=== PATIENT | male | born 1965 | race Caucasian/White ===

== ENCOUNTER 2018-11-15 06:55 | Emergency (ER) | payer BC ==
[~2018-11-15] VITALS: Ht 177.8 cm; Wt 115.7 kg
[~2018-11-15 06:55] MED LIST: KEFLEX500 MG PO
== END 2018-11-15 07:27 | disposition home or self-care (01) ==
LOC: ED 06:55
DX: B37.0 Candidal stomatitis (principal)

== ENCOUNTER 2020-03-08 12:32 | Inpatient (IN) | payer BC ==
[2020-03-08] VITALS (7 sets, daily range): BP systolic 122–136; BP diastolic 67–84
[~2020-03-08] VITALS: Ht 178 cm; Wt 124.3 kg
[2020-03-08 13:12] LABS: BASO % 0.2 % (0.0-1.0); HEMATOCRIT 47.2 % (42.0-52.0); LYMPH % 12.1 % (27.0-41.0); MEAN CELL VOLUME 93.8 fl (80.0-94.0); MEAN CORPUSCULAR HGB 31.8 pg (27.0-31.0); MEAN CORPUSCULAR HGB CONC 33.9 g/dl (33.0-37.0); MEAN PLATELET VOLUME 10.5 fl (9.6-12.3); MONO # 0.6 10*3/uL (0.1-1.0); MONO % 6.7 % (3.0-9.0); NEUT # 6.6 10*3/uL (2.3-7.9); NEUT % 80.3 % (47.0-73.0); PLATELET COUNT AUTOMATED 290 10*3/uL (130-400); RED BLOOD COUNT 5.03 10*6/uL (4.50-5.90); RED CELL DISTRI WIDTH 12.9 % (0-14.5); WHITE BLOOD COUNT 8.2 10*3/uL (4.8-10.8)
--- NOTE | 2020-03-08 13:18 | NUR ---
cardizem titrated up to 6mcg
[2020-03-08 13:23] LABS: ACT PARTIAL THROMBO TIME 46.3 SECONDS (20.0-32.1); INTERNATIONAL NORM RATIO 1.1 (2.0-3.5)
[2020-03-08 13:29] LABS: ALBUMIN 2.7 gm/dl (3.1-4.5); ALKALINE PHOSPHATASE 51 U/L (45-117); BUN 18 mg/dl (7-24); CHLORIDE 101 mmol/L (98-107); CREATININE 1.24 mg/dL (0.70-1.30); POTASSIUM 3.2 mmol/L (3.5-5.1); SGOT/AST 27 IU/L (3-35); SGPT/ALT 22 U/L (12-78); SODIUM 136 mmol/L (136-145); TOTAL PROTEIN 7.5 gm/dL (6.4-8.2)
[2020-03-08 13:31] LABS: TROPONIN I < 0.015 ng/ml (<0.045)
[2020-03-08 13:35] LABS: THYROXINE (T4) TOTAL 8.4 ug/dl (4.5-12.1)
[2020-03-08 13:40] LABS: THYROID STIM HORMONE (HS) 1.2 uIU/ml (0.358-4.75)
--- NOTE | 2020-03-08 13:52 | NUR ---
PT IS RESTING IN BED.
--- NOTE | 2020-03-08 14:04 | NUR ---
TITRATED PT TO 10MG/HR. HR 139, B/P 136/79. PATIENT RESTING IN BED WITH NO VOICED COMPLAINTS. WILL CONTINUE TO MONITOR.
--- NOTE | 2020-03-08 15:08 | NUR ---
CARDIZEM TITRATED TO 15MG
[2020-03-08 17:06] LABS: ABG BASE EXCESS 2.8 mmol/L (-2.0-2.0); ARTERIAL BLOOD GAS PH 7.503 (7.35-7.45)
--- NOTE | 2020-03-08 20:00 | NUR ---
Patient resting quietly with no c/o discomfort. Respirations easy and regular. Vital signs stable. No overt distress. YASIR ARAGON
--- NOTE | 2020-03-08 23:00 | NUR ---
CARDIZEM GTT DECREASED TO 5MG AFTER CONVERSION TO NSR.
[2020-03-09] VITALS (10 sets, daily range): BP systolic 120–149; BP diastolic 60–91
--- NOTE | 2020-03-09 | NUR ---
Patient resting quietly with no c/o discomfort. Respirations easy and regular. Vital signs stable. No overt distress. YASIR ARAGON
--- NOTE | 2020-03-09 03:20 | NUR ---
CARDIZEM GTT DECREASED TO 2.5MG HR HAS STAYED CONSISTENTLY NSR IN THE 60s.
--- NOTE | 2020-03-09 05:41 | NUR ---
Patient resting quietly with no c/o discomfort. Respirations easy and regular. Vital signs stable. No overt distress. YASIR ARAGON
--- NOTE | 2020-03-09 06:25 | NUR ---
MESSAGE LEFT FOR DR ROBERSON AT ANSWERING SERVICE FOR ORDER TO D/C RYAN GTT.
[2020-03-09 06:29] LABS: BASO % 0.2 % (0.0-1.0); HEMATOCRIT 46.2 % (42.0-52.0); LYMPH # 0.6 10*3/uL (1.3-4.4); LYMPH % 13.5 % (27.0-41.0); MEAN CELL VOLUME 96.5 fl (80.0-94.0); MEAN CORPUSCULAR HGB 31.5 pg (27.0-31.0); MEAN CORPUSCULAR HGB CONC 32.7 g/dl (33.0-37.0); MEAN PLATELET VOLUME 10.8 fl (9.6-12.3); MONO # 0.2 10*3/uL (0.1-1.0); MONO % 4.3 % (3.0-9.0); NEUT # 3.8 10*3/uL (2.3-7.9); NEUT % 81.1 % (47.0-73.0); PLATELET COUNT AUTOMATED 324 10*3/uL (130-400); RED BLOOD COUNT 4.79 10*6/uL (4.50-5.90); RED CELL DISTRI WIDTH 12.9 % (0-14.5); WHITE BLOOD COUNT 4.7 10*3/uL (4.8-10.8)
[2020-03-09 06:31] LABS: ALBUMIN 2.7 gm/dl (3.1-4.5); ALKALINE PHOSPHATASE 52 U/L (45-117); BUN 18 mg/dl (7-24); CHLORIDE 103 mmol/L (98-107); CREATININE 0.97 mg/dL (0.70-1.30); LDH 247 U/L (87-241); POTASSIUM 4.1 mmol/L (3.5-5.1); SGOT/AST 24 IU/L (3-35); SGPT/ALT 23 U/L (12-78); SODIUM 134 mmol/L (136-145); TOTAL PROTEIN 7.5 gm/dL (6.4-8.2)
[2020-03-09 08:30] LABS: ABG BASE EXCESS 1.4 mmol/L (-2.0-2.0); ARTERIAL BLOOD GAS PH 7.482 (7.35-7.45)
[2020-03-09 10:40] LABS: VITAMIN D, 25-HYDROXY 29.1 ng/mL (30-100)
[2020-03-09 10:41] LABS: FERRITIN 1068.9 ng/mL (22.0-322.0)
[2020-03-09 13:07] LABS: ABG BASE EXCESS 1.2 mmol/L (-2.0-2.0); ARTERIAL BLOOD GAS PH 7.494 (7.35-7.45)
--- NOTE | 2020-03-09 14:20 | NUR ---
PT WAS PLACED ON BIPAP PER DR CHEN. PT TOLERATING WELL. RT EXPLANED TO PT THE IMPORTANCE OF THE BIPAP AND PRONNING FOR COVID. PT UNDERSTANDS.
--- NOTE | 2020-03-09 15:17 | NUR ---
Front Sight Attacher in to talk to patient. Patient states lives at home with friend. There are no steps in the home. Physician: Pharmacy: mail Home health services: none Patient's level of ADLs: INDEPENDENT Patient has working utilities: all working DME: none Follow-up physician's appointment after d/c: will be made by hospitalist nurse director upon discharge Does patient want to access PORTAL?: no Discharge plan discussed with patient by phone, he is independent in adls and ambulation, works, drives, he states she will return home when discharged and denies at this time any home needs, case management will follow. MICHAEL JEFFERSON
--- NOTE | 2020-03-09 15:42 | NUR ---
0800 ISOLATION COVID POSITIVE: ASSUMED PATIENT CARE. RECEIVED ALERT, ORIENTED X3. COHERENT. O2PER N/C INCREASED TO 6L/HR. NO DYSPENA NOTED, DENIES DYSPNEA AT T HIS TIME. LUNGS CLEAR BILATERALLY WITH DIMINISGED BASES. WESTERN FELT HAT BLOCKER IN PLACE NSR NOTED. SKIN W/D. COLOR PINK/PALE. WARM TO TOUCH WITH GOOD SKIN TUGOR. CPAILLARY REFILL <3 SECONDS. DENIES ABDOMINAL DISCONFORT. ABDOMEN ROUND WITH POSITIVE BS X 4. NO SYSTEMIC EDEMA NOTED.LAC HEPLOCK IN PLACE FLUSHED WITH 10CC VS. RA IV'S CARDIZEM DRIP @2.5 CC/HR NO S/S INFLITRATION NOTED. HEPARIN DRIP @ 12CC/HR 1200UNITS PER HOUR. O2SAT =83% 0N 6L N/C 1000 PTT RESULTS 62.5. NO CHANGE TO DRIP RATE. BLOOD GAS DRAWN ORDERED PER RESPIRATORY. PLAN: TO APPLY B-PAP ACCORDING TO ABG RESULTS 1045 CARDIZEM DRIP DISCONTINUED ORDERED. LOPRESSOR 50MG GIVEM PO 1430 BI-PAP STARTED PER RESPIRATORY. PATIENT TEACHING STRESSING THE IMPORTANCE OF BI-PAP AND THE NEED FOR FURTHER MONITORING. VITALS STABLE. DENIES DISCOMFORT. 1600 REPEAT ABG PER RESPIRATORY. DENIES DYSPNEA.
[2020-03-09 16:28] LABS: ABG BASE EXCESS 2.1 mmol/L (-2.0-2.0); ARTERIAL BLOOD GAS PH 7.572 (7.35-7.45)
[2020-03-09 21:44] LABS: ABG BASE EXCESS 1.7 mmol/L (-2.0-2.0); ARTERIAL BLOOD GAS PH 7.559 (7.35-7.45)
--- NOTE | 2020-03-09 23:32 | NUR ---
Patient received in bed AAO denies pain or SOB at this time.Heparin drip infusing at 12ml/hr LAC. Lungs decreased. Patient on Bipap. Instructed to notify RN for increased SOB or difficulty breathing. Vitals stable at this time will continue to monitor.
[2020-03-10] VITALS (9 sets, daily range): BP systolic 126–154; BP diastolic 70–81
--- NOTE | 2020-03-10 00:02 | NUR ---
Administered Remdesivir as ordered LACdedicated line. Patient tolerated well. No complaint offered. No adverse effect noted.
--- NOTE | 2020-03-10 05:09 | NUR ---
Patient SB on and off throught the night. Lowest HR noted 47 Patient asleep. Awake patient at interval. Easily aroused. Denies discomfort. Bipap remains in use. Heparin continues to infuse at 12 ml/hr. Ptt in AM
[2020-03-10 06:10] LABS: ALBUMIN 2.5 gm/dl (3.1-4.5); BUN 21 mg/dl (7-24); CHLORIDE 105 mmol/L (98-107); CREATININE 0.97 mg/dL (0.70-1.30); LDH 318 U/L (87-241); SGOT/AST 28 IU/L (3-35); SGPT/ALT 26 U/L (12-78); SODIUM 136 mmol/L (136-145)
[2020-03-10 06:11] LABS: ALKALINE PHOSPHATASE 48 U/L (45-117); BASO % 0.1 % (0.0-1.0); CPK 120 U/L (39-308); HEMATOCRIT 43.6 % (42.0-52.0); LYMPH # 1.2 10*3/uL (1.3-4.4); MEAN CELL VOLUME 97.1 fl (80.0-94.0); MEAN CORPUSCULAR HGB 31.8 pg (27.0-31.0); MEAN CORPUSCULAR HGB CONC 32.8 g/dl (33.0-37.0); MEAN PLATELET VOLUME 10.9 fl (9.6-12.3); MONO # 0.7 10*3/uL (0.1-1.0); MONO % 4.7 % (3.0-9.0); NEUT # 12.9 10*3/uL (2.3-7.9); POTASSIUM 4.7 mmol/L (3.5-5.1); RED BLOOD COUNT 4.49 10*6/uL (4.50-5.90); RED CELL DISTRI WIDTH 13.1 % (0-14.5)
[2020-03-10 06:12] LABS: PLATELET COUNT AUTOMATED 438 10*3/uL (130-400)
--- NOTE | 2020-03-10 06:35 | NUR ---
Received call from lab spoke to iHlda Moreno Lactic Acid 2.3. DR Clair Mo notified of Critical lab value. States I will follow up also notified him of PTT 63.1. Patient on Heparin drip at 1200 units no change per protocol. Next PTT in am.
--- NOTE | 2020-03-10 08:15 | NUR ---
PATIENT TAKEN OFF OF BI-PAP, PLACED ON 6 L/M.
[2020-03-10 08:17] LABS: ABG BASE EXCESS 2.7 mmol/L (-2.0-2.0); ARTERIAL BLOOD GAS PH 7.561 (7.35-7.45)
--- NOTE | 2020-03-10 08:44 | NUR ---
)730 ASSUMED PATIENT CARE. RECEIVED ALERT, ORIENTED X3. COHERENT. "I FEEL OKAY TODAY, JUST WANNA KNOW WHEN I CAN GO HOME." PATIENT TEACHING GIVEN. INFORMED OF NEED FOR FURTHER TREATMENT. EXPLAINED ANATOMY AND PHYSIOLOGY OF THE LUNGS VIA WAY OF USINGE THE SECTIONS OF A ORANGE AN EXAMPLE. STATES "I UNDERSTAND IT BETTER NOW" STRESSED THE NEED FOR FURTHER TREATMENT. STATES HE DIDN'T SLEEP OR REST WELL LAST NIGHT WITH THE MACHINE (BI-PAP). LOOKS DEPRESSED AND SPEAKING WITH LESS ENTHUSIAM. BI-PAP IN PLACE TOERATING IT WELL. COLOR PINK. SKIN WARM AND DRY TO TOUCH, GOOD SKIN TUGOR. CAPILLARY REFILL <3SECS. LUNG CLEAR BILATERALLY WITH GOOD AERATION SLIGHTLY DIMINSHED TO THE BASES. MOVING ALL EXTREMITIES WITHOUT DIFFICULITIES. RAC IV HEPARIN DRIP @ 12CC/HR INFUSING WELL WITH NO S/S INFILTRATION NOTED. LAC NOTED FLUSHED WITH 10CC/HR NO S/S INFILTRATION NOTED. VOIDING WITHOUT DIFFICULTY. DENIES ABDOMINAL DISCOMFORT WITH POSITIVE BSX4. NO SYSTEMIC EDEMA NOTED. 0800 REPEAT 2 HOUR LACTIC ACID REDRAWN. ABG DONE. PORTABLE XRAY COMPLETED. 0830 LACTIC ACID =2.7 DE. OLIVIA IMFORMED NO ORDERES RECEIVED.
--- NOTE | 2020-03-10 14:14 | NUR ---
1320 cRITICAL RESULTS LACTIC ACID =3.[address] KUMAR INFORMED NO ORDERS GIVEN
--- NOTE | 2020-03-10 17:00 | NUR ---
PATIENT TAKEN OFF OF BI-PAP, PLACED ON 5 L/M CANNULA.
[2020-03-11] VITALS (12 sets, daily range): BP systolic 126–1278; BP diastolic 49–88
--- NOTE | 2020-03-11 03:54 | NUR ---
Assumed care at 1900 No acute distress noted at this time. Denies pain or SOB. Heparin infusing at 1200 units/hr. Administered meds as ordered. Chris hose in place removed and reapplied. SB throughout the night 44-55. Bipap is maintained. Will continue to monitor
[2020-03-11 05:55] LABS: ALBUMIN 2.6 gm/dl (3.1-4.5); ALKALINE PHOSPHATASE 51 U/L (45-117); BUN 23 mg/dl (7-24); CHLORIDE 107 mmol/L (98-107); LDH 208 U/L (87-241); POTASSIUM 3.9 mmol/L (3.5-5.1); SGOT/AST 23 IU/L (3-35); SGPT/ALT 32 U/L (12-78); SODIUM 139 mmol/L (136-145); TOTAL PROTEIN 6.5 gm/dL (6.4-8.2)
[2020-03-11 06:02] LABS: BASO % 0.2 % (0.0-1.0); HEMATOCRIT 42.4 % (42.0-52.0); LYMPH # 1.1 10*3/uL (1.3-4.4); LYMPH % 7.4 % (27.0-41.0); MEAN CELL VOLUME 95.5 fl (80.0-94.0); MEAN CORPUSCULAR HGB 31.8 pg (27.0-31.0); MEAN CORPUSCULAR HGB CONC 33.3 g/dl (33.0-37.0); MEAN PLATELET VOLUME 10.8 fl (9.6-12.3); MONO # 0.8 10*3/uL (0.1-1.0); MONO % 5.3 % (3.0-9.0); NEUT # 12.3 10*3/uL (2.3-7.9); NEUT % 85.4 % (47.0-73.0); PLATELET COUNT AUTOMATED 487 10*3/uL (130-400); RED BLOOD COUNT 4.44 10*6/uL (4.50-5.90); RED CELL DISTRI WIDTH 12.9 % (0-14.5); WHITE BLOOD COUNT 14.4 10*3/uL (4.8-10.8)
[2020-03-11 06:03] LABS: CPK 75 U/L (39-308)
[2020-03-11 08:34] LABS: ABG BASE EXCESS 2.4 mmol/L (-2.0-2.0); ARTERIAL BLOOD GAS PH 7.644 (7.35-7.45)
[2020-03-12] VITALS (7 sets, daily range): BP systolic 102–155; BP diastolic 42–80
--- NOTE | 2020-03-12 04:32 | NUR ---
Patients SB heart rate continues to be low while asleep 37-50s. Patient denies pain ,SOB or discomfort upon assessment during episodes. Pt on Bipap througout the night. Will continue to monitor.
[2020-03-12 06:26] LABS: ALBUMIN 2.6 gm/dl (3.1-4.5); ALKALINE PHOSPHATASE 53 U/L (45-117); BUN 23 mg/dl (7-24); CHLORIDE 107 mmol/L (98-107); CPK 63 U/L (39-308); CREATININE 1.02 mg/dL (0.70-1.30); LDH 219 U/L (87-241); POTASSIUM 4.1 mmol/L (3.5-5.1); SGOT/AST 50 IU/L (3-35); SGPT/ALT 63 U/L (12-78); SODIUM 139 mmol/L (136-145); TOTAL PROTEIN 6.6 gm/dL (6.4-8.2)
[2020-03-12 06:36] LABS: HEMATOCRIT 44.8 % (42.0-52.0); MEAN CELL VOLUME 96.8 fl (80.0-94.0); MEAN CORPUSCULAR HGB 31.5 pg (27.0-31.0); MEAN CORPUSCULAR HGB CONC 32.6 g/dl (33.0-37.0); MEAN PLATELET VOLUME 10.4 fl (9.6-12.3); PLATELET COUNT AUTOMATED 493 10*3/uL (130-400); RED BLOOD COUNT 4.63 10*6/uL (4.50-5.90); WHITE BLOOD COUNT 13.3 10*3/uL (4.8-10.8)
[2020-03-12 07:20] LABS: ATYPICAL LYMPHS 1 % (0-0); BURR CELLS FEW; PLATELET SUFFICIENCY HIGH (NORMAL); TOTAL CELLS COUNTED 100 #CELLS
[2020-03-12 07:48] LABS: ABG BASE EXCESS 2.3 mmol/L (-2.0-2.0); ARTERIAL BLOOD GAS PH 7.676 (7.35-7.45)
--- NOTE | 2020-03-12 08:00 | NUR ---
PT RESTING. VSS. PT STILL C/O SLIGHT SOB ON EXERTION. LUNG DOLAN DIM BILAT. 4L NC ON WITH POX 97%. PT DENIES COMPLAINTS. NO ACUTE DISTRESS NOTED.
--- NOTE | 2020-03-12 09:40 | NUR ---
TOPROL XL HELD FOR HR 50'S.
--- NOTE | 2020-03-12 10:30 | NUR ---
DR UMAÑA IN TO SEE PT. STATED PT COULD BE MED-SURGE AND PT PROBABLY GOING HOME TOMORROW SO HOLD BIPAP TODAY IF ABLE.
--- NOTE | 2020-03-12 13:03 | NUR ---
PT RESTING. NO ACUTE DISTRESS NOTED.
--- NOTE | 2020-03-12 16:34 | NUR ---
DR ROBERSON UPDATED ON PT'S CONTINUED HR IN 50'S AND TOPROL HELD THIS AM. ORDERS RECEIVED TO HOLD TOPROL TODAY 1/2 CURRENT DOSE AND START THAT DOSE (WHICH WOULD BE 12.5MG ) IN AM 03/13.
--- NOTE | 2020-03-12 17:00 | NUR ---
PATIENT ASSESSED FOR HOME O2. AT REST ON 3.5 L/M O2 PATIENT'S SPO2 WAS 100% HR 56. AFTER 10 MINUTES ON ROOM AIR SPO2 DECREASED TO 97%, HR 55. PATIENT AMBULATED IN THE ROOM ON ROOM AIR, SPO2 DECREASED TO 94% HR REMAINED IN THE 50'S. PATIENT DID NOT QUALIFY FOR HOME O2. CARLOS DUBON NOTIFIED. PATIENT LEFT ON ROOM AIR.
--- NOTE | 2020-03-12 18:19 | NUR ---
DR FAROOQ IN TO SEE PT.
--- NOTE | 2020-03-12 20:00 | NUR ---
Patient sitting up in chair, has no complaints at this time. Requested his sleeping pill at 11pm instead of the scheduled time of 10. Patient on room air doing great, and ready to go home tomorrow. Patient left with call light in reach.
--- NOTE | 2020-03-12 23:45 | NUR ---
PATIENT DOES NOT WISH TO WEAR THE BIPAP FOR THIS SHIFT.
[2020-03-13] VITALS: BP 136/67
--- NOTE | 2020-03-13 03:39 | NUR ---
24 HR chart check completed.
[2020-03-13 06:55] LABS: HEMATOCRIT 47.6 % (42.0-52.0); MEAN CELL VOLUME 98.1 fl (80.0-94.0); MEAN CORPUSCULAR HGB CONC 32.6 g/dl (33.0-37.0); MEAN PLATELET VOLUME 10.2 fl (9.6-12.3); NUCLEATED RED BLOOD CELL 0.1 % (0.0-0.0); PLATELET COUNT AUTOMATED 558 10*3/uL (130-400); RED BLOOD COUNT 4.85 10*6/uL (4.50-5.90); RED CELL DISTRI WIDTH 13.2 % (0-14.5); WHITE BLOOD COUNT 13.7 10*3/uL (4.8-10.8)
[2020-03-13 07:27] LABS: ALBUMIN 2.8 gm/dl (3.1-4.5); BUN 20 mg/dl (7-24); CHLORIDE 105 mmol/L (98-107); CREATININE 1.05 mg/dL (0.70-1.30); POTASSIUM 4.1 mmol/L (3.5-5.1); SGOT/AST 40 IU/L (3-35); SGPT/ALT 71 U/L (12-78); SODIUM 139 mmol/L (136-145)
[2020-03-13 07:32] LABS: ALKALINE PHOSPHATASE 55 U/L (45-117); CPK 51 U/L (39-308); LDH 223 U/L (87-241)
[2020-03-13 08:00] VITALS: BP 150/76
[2020-03-13 08:07] LABS: ATYPICAL LYMPHS 3 % (0-0); PLATELET SUFFICIENCY HIGH (NORMAL); TOTAL CELLS COUNTED 100 #CELLS
[2020-03-13 08:20] LABS: ABG BASE EXCESS 1.8 mmol/L (-2.0-2.0); ARTERIAL BLOOD GAS PH 7.487 (7.35-7.45)
--- NOTE | 2020-03-13 08:30 | NUR ---
Patient resting quietly with no c/o discomfort. Respirations easy and regular.Isolation precautions maintained. Vital signs stable. No overt distress. REGINA HESS R
--- NOTE | 2020-03-13 09:00 | NUR ---
case management talks with patient, he is a possibly discharge to home today, he did not qualify for home oxygen, he denies any home needs at this time
[2020-03-13] MEDS ORDERED: DECADRON6 M1 PO (09:15)
[2020-03-13] MEDS ORDERED: ASPIRIN ADULT L81 M2 PO (09:15)
[2020-03-13] MEDS ORDERED: METOPROLOL SUCC25 M2 PO (09:15)
--- NOTE | 2020-03-13 11:50 | NUR ---
Discharge instructions reviewed with patient/family. Patient receptive and verbalizes understanding. Follow-up care arranged. Written instructions given to patient/family. REGINA HESS
== END 2020-03-13 11:50 | disposition home or self-care (01) | DRG 871 ==
LOC: ED 12:32 → EDHOLD 14:59 → 4E 14:59
PROVIDERS: Emergency Medicine; Internal Medicine Critical Care Medicine; Student in an Organized Health Care Education/Training Program; ADMIT Internal Medicine; ATTEND Internal Medicine
PROC: XW033E5 Introduction of Remdesivir Anti-infective into Peripheral Vein, Percutaneous Approach, New Technology Group 5 (ICD-10-PCS; 2020-03-08)
PROC: 5A09357 Assistance with Respiratory Ventilation, Less than 24 Consecutive Hours, Continuous Positive Airway Pressure (ICD-10-PCS; principal; 2020-03-09)
PROC: XW033E5 Introduction of Remdesivir Anti-infective into Peripheral Vein, Percutaneous Approach, New Technology Group 5 (ICD-10-PCS; 2020-03-09)
PROC: 5A09357 Assistance with Respiratory Ventilation, Less than 24 Consecutive Hours, Continuous Positive Airway Pressure (ICD-10-PCS; 2020-03-10)
PROC: XW033E5 Introduction of Remdesivir Anti-infective into Peripheral Vein, Percutaneous Approach, New Technology Group 5 (ICD-10-PCS; 2020-03-10)
PROC: 5A09357 Assistance with Respiratory Ventilation, Less than 24 Consecutive Hours, Continuous Positive Airway Pressure (ICD-10-PCS; 2020-03-11)
PROC: 5A09357 Assistance with Respiratory Ventilation, Less than 24 Consecutive Hours, Continuous Positive Airway Pressure (ICD-10-PCS; 2020-03-12)
DX: A41.89 Other specified sepsis (principal); U07.1 COVID-19; E43 Unspecified severe protein-calorie malnutrition; J12.89 Other viral pneumonia; J96.01 Acute respiratory failure with hypoxia; D68.59 Other primary thrombophilia; E87.2 Acidosis; I48.91 Unspecified atrial fibrillation; E87.6 Hypokalemia; E66.01 Morbid (severe) obesity due to excess calories; R73.9 Hyperglycemia, unspecified; E83.41 Hypermagnesemia; Z80.1 Family history of malignant neoplasm of trachea, bronchus and lung; Z68.36 Body mass index [BMI] 36.0-36.9, adult

== ENCOUNTER → 2020-03-29 | Outpatient (CLI) | payer BC ==
[~2020-03-29] MED LIST changes: +ASPIRIN ADULT L81 M2 PO; +DECADRON6 M1 PO; +METOPROLOL SUCC25 M2 PO
== END | disposition home or self-care (01) ==
LOC: RESCLI 00:31
PROVIDERS: ATTEND Internal Medicine
DX: I48.0 Paroxysmal atrial fibrillation (principal); E56.9 Vitamin deficiency, unspecified; E66.9 Obesity, unspecified; Z79.899 Other long term (current) drug therapy; Z11.59 Encounter for screening for other viral diseases; Z98.890 Other specified postprocedural states

== ENCOUNTER → 2020-04-02 | Outpatient (CLI) | payer BC ==
[2020-04-02 08:09] LABS: CHOLESTEROL 232 mg/dL (<200); HDL CHOLESTEROL 70 mg/dl (40-60); LDL CHOLESTEROL 141 mg/dL (9-159); TRIGLYCERIDES 103 mg/dl (<150); VLDL CHOLESTEROL 21 mg/dL (6-40)
== END | disposition home or self-care (01) ==
LOC: LAB 07:06
PROVIDERS: Internal Medicine; ATTEND Emergency Medicine
DX: Z11.59 Encounter for screening for other viral diseases (principal); Z79.899 Other long term (current) drug therapy

== ENCOUNTER → 2020-04-04 | Outpatient (CLI) | payer BC | END | disposition home or self-care (01) | LOC: CARD 04:40 | PROVIDERS: ATTEND Emergency Medicine | DX: I48.0 Paroxysmal atrial fibrillation (principal) ==

== ENCOUNTER → 2020-06-06 | Outpatient (CLI) | payer BC | END | disposition home or self-care (01) | LOC: LAB 14:50 | PROVIDERS: ATTEND Student in an Organized Health Care Education/Training Program | DX: I48.91 Unspecified atrial fibrillation (principal) ==